=== PATIENT | male | born 1955 | race Caucasian/White ===

== ENCOUNTER → 2019-01-15 | Outpatient (CLI) | payer OTHER ==
[~2019-01-15] MED LIST: ASACOL PO; ASPIRIN 81M81 MG/TA2 PO; CARAFATE 1GM1 G PO; CIALIS20 MG PO; DEXILANT60 MG PO; FLAGYL 250250 MG/TAB PO; FLOMAX 0.40.4 MG/CAP PO; HUMIRA40 MG/0.1 SC; IMURAN 50MG TAB50 MG PO; IRON324 M1 PO; LIPITOR20 MG PO; MULTIPLE VITAMI1 CAP PO; NEXIUM 40MG40 MG PO; NORCO 325 MG-51 TAB PO; PREDNISONE1 MG PO; PROBIOTIC FORMU1 CAP PO; REMICADE V100 MG/VIA IV; VIT C; VIT D; ZETIA 10MG TAB10 MG PO; ZOFRAN 4MG T4 MG/TAB PO
== END ==
LOC: COL.RAD 08:09
DX: K74.60 Unspecified cirrhosis of liver (principal); I81 Portal vein thrombosis

== ENCOUNTER → 2020-03-11 | Outpatient (CLI) | payer OTHER ==
[2020-03-11 23:02] LABS: BASO # 0.1 (0.0-0.2); BASO % 0.7 % (0.0-2.0); EOS # 0.6 (0.0-0.7); EOS % 7.7 % (0-4.0); GRAN # 2.7 (1.4-6.5); GRAN % 38.2 % (42.2-75.2); HEMATOCRIT 40.1 % (42.0-52.0); HEMOGLOBIN 13.5 g/dl (13.5-18.0); LYMPH # 3.1 (1.2-3.4); LYMPH % 43.5 % (20.0-51.0); MEAN CELL VOLUME 97 fl (80.0-100.0); MEAN CORPUSCULAR HEMOGLOBIN 33 pg (27.0-31.0); MEAN CORPUSCULAR HGB CONC 34 g/dl (33.0-37.0); MEAN PLATELET VOLUME 12.1 fl (7.4-10.4); MONO # 0.7 (0.1-0.6); MONO % 9.8 % (1.7-9.3); PLATELET COUNT 151 K/mm3 (130-400); RED BLOOD COUNT 4.12 M/mm3 (4.20-5.60); REDCELL DISTRIBUTION WIDTH-CV 13.8 % (11.5-14.5)
[2020-03-11 23:11] LABS: ALANINE AMINOTRANSFERASE 12 U/L (4-49); ALBUMIN 3.9 gm/dL (3.5-5.0); ALKALINE PHOSPHATASE 105 U/L (50-136); ANION GAP 5 mmol/L (7-16); AST,SGOT 35 U/L (15-37); BILIRUBIN,TOTAL 0.5 mg/dL (0.0-1.0); BLOOD UREA NITROGEN 16 mg/dL (9-20); CALCIUM 9.2 mg/dL (8.4-10.2); CARBON DIOXIDE 26 mmol/L (22-30); CHLORIDE 105 mmol/L (98-107); CREATININE, serum 0.86 (0.66-1.25); GLUCOSE 79 mg/dL (74-106); POTASSIUM 4.5 mmol/L (3.4-5.0); SODIUM 136 mmol/L (137-145); TOTAL PROTEIN 7.8 gm/dL (6.4-8.2)
[2020-03-11 23:14] LABS: C-REACTIVE PROTEIN < 0.5 mg/dL (0.0-0.9)
== END ==
LOC: ZCOL.LAB 22:22
DX: Z51.81 Encounter for therapeutic drug level monitoring (principal)

== ENCOUNTER → 2020-05-06 | Outpatient (CLI) | payer OTHER ==
[2020-05-06 21:09] LABS: BASO % 0.4 % (0.0-2.0); EOS # 0.3 (0.0-0.7); EOS % 4.2 % (0-4.0); GRAN # 3.4 (1.4-6.5); GRAN % 45.7 % (42.2-75.2); HEMATOCRIT 40.3 % (42.0-52.0); HEMOGLOBIN 13.5 g/dl (13.5-18.0); LYMPH % 40.4 % (20.0-51.0); MEAN CELL VOLUME 98 fl (80.0-100.0); MEAN CORPUSCULAR HEMOGLOBIN 33 pg (27.0-31.0); MEAN CORPUSCULAR HGB CONC 34 g/dl (33.0-37.0); MEAN PLATELET VOLUME 11.5 fl (7.4-10.4); MONO # 0.7 (0.1-0.6); MONO % 9.2 % (1.7-9.3); PLATELET COUNT 142 K/mm3 (130-400); RED BLOOD COUNT 4.13 M/mm3 (4.20-5.60); REDCELL DISTRIBUTION WIDTH-CV 13.4 % (11.5-14.5)
== END ==
LOC: ZCOL.LAB 20:44
DX: K51.90 Ulcerative colitis, unspecified, without complications (principal)

== ENCOUNTER → 2020-05-16 | Outpatient (CLI) | payer OTHER | LOC: COL.RAD 07:52 | DX: I81 Portal vein thrombosis (principal); K76.6 Portal hypertension | CPT/HCPCS: A9585 ==

== ENCOUNTER → 2020-06-07 | Outpatient (CLI) | payer OTHER | LOC: ZCOL.LAB 16:28 | DX: Z20.828 Contact with and (suspected) exposure to other viral communicable diseases (principal) ==

== ENCOUNTER 2022-05-30 10:45 | Outpatient (RCR) | payer OTHER | END 2022-06-13 | disposition home or self-care (01) | LOC: MKS.ESL.PT | DX: M25.551 Pain in right hip (principal); M54.50 Low back pain, unspecified ==

== ENCOUNTER 2024-08-05 05:34 | Day surgery (SDC) | payer OTHER ==
[~2024-08-05] VITALS: Ht 177.8 cm; Wt 91.5 kg
[2024-08-05] VITALS (14 sets, daily range): BP systolic 118–138; BP diastolic 68–81; PULSE 62–73; TEMP 97.4–98.6
[~2024-08-05 05:34] MED LIST changes: +LR 1,000 ML IV SCH
[2024-08-05] MEDS ORDERED: Pregabalin 150 MG CAP PREOP X1 PO SCH (06:00)
[2024-08-05] MEDS ORDERED: OXYCODONE 10 MG PO SCH (06:00)
[2024-08-05] MEDS ORDERED: Acetaminophen 500 MG TAB PREOP X1 PO SCH (06:00)
[2024-08-05] MEDS ORDERED: Celecoxib 400 MG PREOP X1 PO SCH (06:00)
[2024-08-05] MEDS ORDERED: Midazolam 2 MG/2 ML VIAL ONE (06:20)
[2024-08-05] MEDS ORDERED: Tranexamic Acid 1,000 MG/10 ML VIAL ONE (06:21)
[2024-08-05] MEDS ORDERED: Glycopyrrolate 0.2 MG/ML 1 ML VIAL ONE (06:22)
[2024-08-05] MEDS ORDERED: NS 10 ML IV ONE (06:22)
[2024-08-05] MEDS ORDERED: dexAMETHasone 10 MG/ML VIAL ONE (06:26)
[2024-08-05] MEDS ORDERED: Naloxone 0.4 MG/ML VIAL IV PRN (06:45)
[2024-08-05] MEDS ORDERED: Ondansetron 4 MG TAB PO PRN (06:45)
[2024-08-05] MEDS ORDERED: oxyCODONE 5 MG TAB PO PRN ×2 (06:45)
[2024-08-05] MEDS ORDERED: D5 1/2 NS 1,000 ML IV SCH (06:45)
[2024-08-05] MEDS ORDERED: Magnes Hydrox (MOM) 80 MG/ML 30 ML CUP PO PRN (06:45)
[2024-08-05] MEDS ORDERED: CENTRUM SILVER1 CTB PO (07:03)
[2024-08-05] MEDS ORDERED: VITAMIN D31000 I1 PO (07:04)
[2024-08-05] MEDS ORDERED: MAGNESIUM500 MG PO (07:04)
[2024-08-05] MEDS ORDERED: PROBIOTIC BLEN1 EACH PO (07:05)
[2024-08-05] MEDS ORDERED: FOLIC ACID 40400 MCG PO (07:07)
[2024-08-05] MEDS ORDERED: VITAMIN C500 MG PO (07:08)
[2024-08-05] MEDS ORDERED: OSCAL 500 TAB500 MG PO (07:10)
[2024-08-05] MEDS ORDERED: NATURAL IRON65 MG (07:16)
[2024-08-05] MEDS ORDERED: Acetaminophen 500 MG TAB PO SCH ×2 (07:39→18:00)
[2024-08-05] MEDS ORDERED: droPERidol 2.5 MG/ML 2 ML VIAL IV PRN (08:00)
[2024-08-05] MEDS ORDERED: HYDROmorphone 1 MG/1 ML SYRINGE [PACU/SDC ONLY] IV PRN (08:00)
[2024-08-05] MEDS ORDERED: hydrALAZINE 20 MG/ML 1 ML VIAL IV PRN (08:00)
[2024-08-05] MEDS ORDERED: Ondansetron 4 MG/2 ML VIAL IV PRN (08:00)
[2024-08-05] MEDS ORDERED: fentaNYL 50 MCG/ML 1 ML SYRINGE/VIAL [PACU/SDC ONLY] IV PRN (08:00)
[2024-08-05] MEDS ORDERED: Topical Skin Adhesive 1 EACH (1 ML) TOP ONE (08:06)
[2024-08-05] MEDS ORDERED: LR 1,000 ML IV ONE (08:41)
[2024-08-05] MEDS ORDERED: Naproxen 250 MG TAB PO SCH (10:39)
--- NOTE | 2024-08-05 11:00 | NUR ---
PATIENT ARRIVED TO SURGICAL UNIT VIA BED AT APPROX 1020. PATIENT IS AWAKE, ALERT, AND ORIENTED. TALKING WITH STAFF. DENIES PAIN, BUT STATES HE HAS A "BURNING SENSATION" TO RIGHT HIP. RIGHT HIP DRSG CDI. DENIES OTHER SKIN ISSUES. SITTING UP, DRINKING WATER AND TALKING TO . VSS. POST OP VS INITIATED. MED REC COMPLETE. ICE APPLIED TO RIGHT HIP. SCDS AND TEDS ON. DENIES FUTHER NEEDS OR CONCERNS AT THIS TIME.
[2024-08-05] MEDS ORDERED: ceFAZolin 2 G in Water For Injection,Sterile 20 ML IV SCH (14:30)
--- NOTE | 2024-08-05 20:27 | NUR ---
PATIENT ALERT AND ORIENTED X4. VSS. PATIENT HERE FOR TOTAL RIGHT HIP. AQUACELL TO RIGHT HIP CDI. IV TO RIGHT HAND INT AND FLUSHES WELL. PATIENT REPORTS PAIN 3/10, REQUESTS PRN PAIN MEDICATIONS. PATIENT ON RA. PATIENT EXPERIENCING NAUSEA. PRN ZOFRAN ADMINISTERED. NO FURTHER NEEDS. CALL LIGHT IN REACH. BED ALARM ON.
[2024-08-05] MEDS ORDERED: Sennosides/Docusate 8.6-50 MG TAB PO SCH (21:00)
[2024-08-06 00:29] VITALS: BP 124/73; PULSE 64; TEMP 97.7
[2024-08-06 00:33] VITALS: BP_SYST 124
[2024-08-06 04:21] VITALS: BP 126/77; PULSE 70; TEMP 97.8
[2024-08-06 04:44] VITALS: BP_SYST 126
[2024-08-06 06:24] LABS: HEMOGLOBIN 11.4 g/dl (13.5-18.0)
[2024-08-06 06:26] LABS: HEMATOCRIT 33.6 % (42.0-52.0)
[2024-08-06] MEDS ORDERED: ASPI325T6 PO (06:40)
[2024-08-06] MEDS ORDERED: NAPROSYN500 MG PO (06:41)
[2024-08-06] MEDS ORDERED: ROXICODONE 55 MG/TAB PO (06:41)
--- NOTE | 2024-08-06 07:38 | NUR ---
PATIENT RESTING IN BED AWAKE, ALERT, AND ORIENTED. PATIENT DENIES PAIN OR DISCOMFORT, TELLS THIS RN THAT HE IS READY TO GO HOME TODAY. DR ROLLINS HAS BEEN IN TO SEE PATIENT ALREADY THIS AM. DENIES FURTHER NEEDS OR CONCENS AT THIS TIME. CALL LIGHT WITHIN REACH.
[2024-08-06 08:02] VITALS: BP 132/67; PULSE 73; TEMP 97.9
[2024-08-06] MEDS ORDERED: Atorvastatin 20 MG TAB PO SCH (09:00)
--- NOTE | 2024-08-06 09:15 | NUR ---
THIS RN PROVIDED PATIENT WITH DISCHARGE EDUCATION AND INSTRUCTIONS. ALL QUESTIONS ANSWERED. IV TO RIGHT HAND DISCONTINUED. MINIMAL DRAINAGE NOTED. PATIENT DENIES FURTHER NEEDS OR CONCERNS AT THIS TIME.
[2024-08-06 09:36] VITALS: BP_SYST 132
--- NOTE | 2024-08-06 09:50 | NUR ---
Social work student met with Pt this morning. Pt was sitting in chair with , Kendell (p# [phone]), at bedside. Pt lives with in [place]. PCP is Dr. Garcia at [facility] and uses [facility] for pharmacy. Pt does not have a DPOA is was agreeable that is NOK. Pt does not use any DME at home and is independant with [facility]. Pt will recieve outpatient PT at [facility]. Social work student will send orders. Discharge Plan: home with outpatient PT at [facility]
--- NOTE | 2024-08-06 11:15 | NUR ---
PATIENT ESCORTED OFF UNIT AT APPROX 1110 VIA WC BY PCT. ALL BELONGINGS WITH PATIENT.
--- NOTE | 2024-08-06 12:53 | NUR ---
D: Industrial Technician stopped by room on rounds. A: Pt was resting and content sitting in his chair with his in the room. Pt has no needs right now. P: Industrial Technician informed pt that if she needed anything from the vamp seamer area to let his nurse know. Industrial Technician will follow up as needed.
--- NOTE | 2024-08-06 13:30 | NUR ---
SW Student faxed discharge orders to [facility]. Discharge plan: Home with outpatient PT
== END 2024-08-06 11:10 | disposition home or self-care (01) ==
LOC: SDCO 05:34 → SURG 10:20 → SDCO 08-06 11:10
PROVIDERS: Physician Assistant
DX: M16.12 Unilateral primary osteoarthritis, left hip (principal)
CPT/HCPCS: OP; A6197; A9284; C1713; C1776; J0665; J0688; J0690; J1100; J2250; J2704; J2795; J7120